=== PATIENT | female | born 1950 | race Caucasian/White ===

== ENCOUNTER 2017-01-02 21:33 | Emergency (ER) | payer OTHER, BC ==
[~2017-01-02 21:33] MED LIST: BAY PO; LIPI20 PO; PLA200 PO; TOP50 PO; ZES10 PO
[2017-01-02 21:42] VITALS: BP 156/92
== END 2017-01-02 22:56 | disposition home or self-care (01) ==
LOC: ED 21:33
DX: M20.012 Mallet finger of left finger(s) (principal); I10 Essential (primary) hypertension; M35.00 Sjogren syndrome, unspecified; K21.9 Gastro-esophageal reflux disease without esophagitis; Z88.5 Allergy status to narcotic agent
CPT/HCPCS: A4570